=== PATIENT | female | born 1950 | race African-American/Black ===

== ENCOUNTER 2022-11-10 18:39 | Inpatient (IN) | payer MEDICARE, MEDICAID ==
[~2022-11-10] VITALS: Ht 157.5 cm; Wt 44.1 kg
[2022-11-10] MEDS ORDERED: ASPIRIN 81MG TABLET PO ONE (19:45)
[2022-11-10] MEDS ORDERED: NITROGLYCERIN 0.4MG TABLET SL SL PRN (19:45)
[2022-11-10 20:25] LABS: BASOPHILS % 0.9 % (0.0-2.0); EOSINOPHILS % 0.8 % (0.0-5.0); HEMATOCRIT. 36.5 % (36.0-48.0); HEMOGLOBIN. 11.9 g/dL (12.0-16.0); LYMPHOCYTES % 31.5 % (20.0-50.0); MEAN CORPUSCULAR HEMOGLOBIN 29.1 pg (28.0-32.0); MEAN CORPUSCULAR VOLUME 89.1 fL (81.0-99.0); MONOCYTES % 8.8 % (2.0-8.0); PLATELET 109 x1000/uL (130-400); RED CELL DISTRIBUTION WIDTH 16.1 % (11.6-14.6)
[2022-11-10 20:32] LABS: CHLORIDE 110 mEq/L (98-107)
[2022-11-10 20:35] LABS: D-DIMER 1.92 mg/L FEU (<0.50); PARTIAL THROMBOPLASTIN TIME 26.5 sec (23.4-31.0); PROTHROMBIN TIME 10.7 sec (9.6-11.0)
[2022-11-10] MEDS ORDERED: POTASSIUM CHLORIDE 20MEQ TABLET SR PO ONE (21:45)
[2022-11-10] MEDS ORDERED: ENOXAPARIN 80MG/0.8ML SYR SUBCUT ONE (21:45)
[2022-11-10] MEDS ORDERED: ASPIRIN 81MG TABLET PO NR (22:30)
[2022-11-11] VITALS (7 sets, daily range): BP systolic 108–141; BP diastolic 55–78; PULSE 65–79; RESP 16–18; TEMP 97.7–98.2
[2022-11-11] MEDS ORDERED: GUAIFENESIN 200MG/10ML SUGAR FREE UDC PO PRN (00:15)
[2022-11-11] MEDS ORDERED: IPRATROPIUM/ALBUTEROL 0.5-3(2.5)MG/3ML NEB NEB PRN (00:15)
[2022-11-11] MEDS ORDERED: LORAZEPAM 2MG/ML CPJ IV PRN (00:15)
[2022-11-11] MEDS ORDERED: DOCUSATE SODIUM 100MG CAPSULE PO PRN (00:15)
[2022-11-11] MEDS ORDERED: ACETAMINOPHEN 325MG TABLET PO PRN (00:15)
[2022-11-11] MEDS ORDERED: MAGNESIUM/ALUMINUM HYDROXIDE/SIMETHICONE 30ML UDC PO PRN (00:15)
[2022-11-11] MEDS ORDERED: DEXTROSE 50% WATER 50ML SYRINGE IV PRN (00:15)
[2022-11-11] MEDS ORDERED: ONDANSETRON HCL 4MG/2ML INJ IV PRN (00:15)
[2022-11-11] MEDS ORDERED: CLONIDINE 0.1MG TABLET PO PRN (00:15)
[2022-11-11] MEDS ORDERED: FURO40TA5 PO (02:13)
[2022-11-11] MEDS ORDERED: SACU1TAB PO (02:13)
[2022-11-11] MEDS ORDERED: ALBU18HF2 IH (02:13)
[2022-11-11] MEDS ORDERED: HYDR25TA PO (02:13)
[2022-11-11] MEDS ORDERED: VILA40TA2 PO (02:13)
[2022-11-11] MEDS ORDERED: PRED5TAB PO (02:13)
[2022-11-11] MEDS ORDERED: CARV3.1242 PO (02:13)
[2022-11-11] MEDS ORDERED: ALBU4TAB14 PO (02:13)
[2022-11-11] MEDS ORDERED: NABU-137 PO (02:13)
[2022-11-11] MEDS ORDERED: BUDE6HFA IH ×2 (02:13→02:18)
[2022-11-11] MEDS ORDERED: BUPR-46 PO (02:13)
[2022-11-11] MEDS ORDERED: ALBU4TAB6 PO (02:13)
[2022-11-11] MEDS ORDERED: GABA-290 PO (02:13)
[2022-11-11] MEDS ORDERED: SERT-422 PO (02:13)
[2022-11-11] MEDS ORDERED: PROC5TAB55 PO (02:13)
[2022-11-11] MEDS ORDERED: DAPA10TA PO (02:13)
[2022-11-11] MEDS ORDERED: DEXL60CA6 PO (02:13)
[2022-11-11] MEDS: CARVEDILOL 3.125 MG TABLET PO SCH ×3 (02:33→17:37)
[2022-11-11] MEDS: ACETAMINOPHEN 325MG TABLET PO PRN (02:57)
[2022-11-11 03:12] LABS: PHOSPHORUS 3.1 mg/dL (2.5-4.9)
[2022-11-11 03:18] LABS: INR 1.1; PROTHROMBIN TIME 11.3 sec (9.6-11.0)
[2022-11-11] MEDS ORDERED: POTASSIUM CHLORIDE 20MEQ TABLET SR PO NR (05:15)
[2022-11-11 05:29] LABS: FERRITIN 45 ng/mL (10-291)
[2022-11-11 05:41] LABS: VITAMIN B12 SERUM 306 pg/mL (211-911)
[2022-11-11] MEDS: GABAPENTIN 300MG CAPSULE PO SCH ×3 (06:35→21:11)
[2022-11-11] MEDS: BLOOD SUGAR DIAGNOSTIC STRIP TEST SCH ×4 (07:56→21:00)
[2022-11-11] MEDS: INSULIN LISPRO 100 UNITS/ML SUBCUT SCH ×4 (07:57→21:00)
[2022-11-11] MEDS: PREDNISONE 5MG TABLET PO SCH ×2 (09:00→09:10)
[2022-11-11] MEDS: HYDROCHLOROTHIAZIDE 25MG TABLET PO SCH ×2 (09:00→09:10)
[2022-11-11] MEDS: PANTOPRAZOLE SODIUM 40 MG/VIAL IV SCH (09:09)
[2022-11-11] MEDS: FUROSEMIDE 40MG/4ML VIAL IVP SCH (09:10)
[2022-11-11] MEDS: ENOXAPARIN 40MG/0.4ML SYR SUBCUT SCH (09:11)
[2022-11-11 09:16] LABS: CREATINE KINASE MB FRACTION 1.8 ng/mL (0.5-3.6)
[2022-11-11] MEDS: IPRATROPIUM/ALBUTEROL 0.5-3(2.5)MG/3ML NEB NEB SCH ×4 (09:37→21:06)
[2022-11-11] MEDS: BUPROPION HCL 75MG TABLET PO SCH ×2 (10:09→21:28)
[2022-11-11] MEDS ORDERED: IOHEXOL-350 100 ML BOTTLE ONE (15:24)
[2022-11-11 18:47] LABS: CREATINE KINASE MB FRACTION 1.6 ng/mL (0.5-3.6)
[2022-11-12] VITALS (11 sets, daily range): BP systolic 97–143; BP diastolic 47–76; PULSE 61–83; RESP 16–20; TEMP 97.2–99; O2SAT 92–99
[2022-11-12] MEDS: IPRATROPIUM/ALBUTEROL 0.5-3(2.5)MG/3ML NEB NEB SCH ×6 (00:10→21:13)
[2022-11-12] MEDS: GABAPENTIN 300MG CAPSULE PO SCH ×3 (05:22→21:08)
[2022-11-12] MEDS: BLOOD SUGAR DIAGNOSTIC STRIP TEST SCH ×4 (07:40→20:37)
[2022-11-12 07:55] LABS: CHLORIDE 106 mEq/L (98-107)
[2022-11-12 07:59] LABS: BASOPHILS % 0.7 % (0.0-2.0); EOSINOPHILS % 2.4 % (0.0-5.0); HEMATOCRIT. 33.9 % (36.0-48.0); HEMOGLOBIN. 11.4 g/dL (12.0-16.0); LYMPHOCYTES % 39.3 % (20.0-50.0); MEAN CORPUSCULAR HEMOGLOBIN 29.5 pg (28.0-32.0); MEAN PLATELET VOLUME 10.4 fl (7.4-10.4); MONOCYTES % 11.2 % (2.0-8.0); NEUTROPHILS % 46.4 % (40.0-76.0); PLATELET 107 x1000/uL (130-400); RED BLOOD CELL COUNT 3.86 mill/uL (4.2-5.4); RED CELL DISTRIBUTION WIDTH 15.7 % (11.6-14.6)
[2022-11-12] MEDS: INSULIN LISPRO 100 UNITS/ML SUBCUT SCH ×4 (08:10→20:37)
[2022-11-12 08:11] LABS: HDL CHOLESTEROL 89 mg/dL (40-59); LDL CHOLESTEROL 63 mg/dL (5-100); T4 FREE 0.99 ng/dL (0.76-1.46)
[2022-11-12] MEDS: PREDNISONE 5MG TABLET PO SCH (08:50)
[2022-11-12] MEDS: BUPROPION HCL 75MG TABLET PO SCH ×2 (08:50→21:07)
[2022-11-12] MEDS: ENOXAPARIN 40MG/0.4ML SYR SUBCUT SCH (08:50)
[2022-11-12] MEDS: FUROSEMIDE 40MG/4ML VIAL IVP SCH (08:50)
[2022-11-12] MEDS: PANTOPRAZOLE SODIUM 40 MG/VIAL IV SCH (08:50)
[2022-11-12] MEDS: HYDROCHLOROTHIAZIDE 25MG TABLET PO SCH (08:51)
[2022-11-12] MEDS: CARVEDILOL 3.125 MG TABLET PO SCH ×2 (08:51→16:35)
[2022-11-12 09:38] LABS: BG BASE EXCESS 0.4 mmol/L (-2.0-2.0); BG DEOXYHEMOGLOBIN 3.9 % (0.0-5.0); BG FRACTION INSPIRED OXYGEN 21; BG HCO3 ACT 24.6 mmol/L (22.0-26.0); BG METHEMOGLOBIN 0.3 % (0.0-1.5); BG OXYHEMOGLOBIN 94.8 % (94.0-97.0); BG PCO2 38.1 mmHg (35.0-45.0); BG PH 7.428 (7.350-7.450); BG SAMPLE SITE LEFT BRACHIAL; BG TOTAL HEMOGLOBIN 12.7 g/dL (12.0-18.0); BG VENT MODE ROOM AIR
[2022-11-12] MEDS: SACUBITRIL/VALSARTAN 24MG/26MG TABLET PO SCH (13:01)
[2022-11-13] VITALS (12 sets, daily range): BP systolic 98–115; BP diastolic 53–65; PULSE 69–94; RESP 18–20; TEMP 97.8–99; O2SAT 99–100
[2022-11-13] MEDS: IPRATROPIUM/ALBUTEROL 0.5-3(2.5)MG/3ML NEB NEB SCH ×6 (00:22→20:36)
[2022-11-13] MEDS: GABAPENTIN 300MG CAPSULE PO SCH ×3 (05:35→21:07)
[2022-11-13 07:38] LABS: BASOPHILS % 0.5 % (0.0-2.0); EOSINOPHILS % 1.3 % (0.0-5.0); HEMATOCRIT. 34.1 % (36.0-48.0); HEMOGLOBIN. 11.6 g/dL (12.0-16.0); MEAN PLATELET VOLUME 10.1 fl (7.4-10.4); MONOCYTES % 11.4 % (2.0-8.0); NEUTROPHILS % 57.8 % (40.0-76.0); PLATELET 118 x1000/uL (130-400); RED BLOOD CELL COUNT 3.87 mill/uL (4.2-5.4); RED CELL DISTRIBUTION WIDTH 15.8 % (11.6-14.6)
[2022-11-13] MEDS: BLOOD SUGAR DIAGNOSTIC STRIP TEST SCH ×4 (07:40→20:26)
[2022-11-13 08:09] LABS: CHLORIDE 105 mEq/L (98-107)
[2022-11-13] MEDS: INSULIN LISPRO 100 UNITS/ML SUBCUT SCH ×4 (08:10→20:26)
[2022-11-13] MEDS: CARVEDILOL 3.125 MG TABLET PO SCH ×2 (09:00→17:00)
[2022-11-13 09:23] LABS: CLARITY URINE CLEAR (CLEAR); COLOR URINE YELLOW (YELLOW); KETONES URINE NEGATIVE (NEGATIVE); LEUKOCYTE ESTERASE URINE NEGATIVE (NEGATIVE); NITRITE URINE NEGATIVE (NEGATIVE); OCCULT BLOOD URINE NEGATIVE (NEGATIVE); PROTEIN URINE NEGATIVE (NEGATIVE); UROBILINOGEN URINE 0.2 E.U./dL (0.2-1.0)
[2022-11-13 09:44] LABS: *AMPHETAMINES SCREEN URINE NEGATIVE (NEGATIVE); *BARBITURATES SCREEN URINE NEGATIVE (NEGATIVE); *BENZODIAZEPINES SCREEN URINE NEGATIVE (NEGATIVE); *COCAINE SCREEN URINE NEGATIVE (NEGATIVE); CANNABINOID URINE SCREEN NEGATIVE (NEGATIVE); METHADONE URINE SCREEN NEGATIVE (NEGATIVE); OPIATES URINE SCREEN NEGATIVE (NEGATIVE); PHENCYCLIDINE URINE SCREEN NEGATIVE (NEGATIVE)
[2022-11-13] MEDS: BUPROPION HCL 75MG TABLET PO SCH ×2 (09:50→21:07)
[2022-11-13] MEDS: SACUBITRIL/VALSARTAN 24MG/26MG TABLET PO SCH (09:50)
[2022-11-13] MEDS: HYDROCHLOROTHIAZIDE 25MG TABLET PO SCH (09:50)
[2022-11-13] MEDS: PANTOPRAZOLE 40MG DR TABLET PO SCH (09:52)
[2022-11-13] MEDS: FUROSEMIDE 40MG/4ML VIAL IVP SCH (09:52)
[2022-11-13] MEDS: ENOXAPARIN 40MG/0.4ML SYR SUBCUT SCH (09:53)
[2022-11-13] MEDS: ACETAMINOPHEN 325MG TABLET PO PRN (17:27)
[2022-11-13] MEDS: MECLIZINE 25MG TABLET PO PRN (22:10)
[2022-11-14] VITALS (9 sets, daily range): BP systolic 98–119; BP diastolic 55–62; PULSE 72–98; RESP 12–23; TEMP 97.8–98.5; O2SAT 98
[2022-11-14] MEDS: IPRATROPIUM/ALBUTEROL 0.5-3(2.5)MG/3ML NEB NEB SCH ×5 (00:11→20:52)
[2022-11-14] MEDS: GABAPENTIN 300MG CAPSULE PO SCH ×2 (05:38→21:31)
[2022-11-14] MEDS: BLOOD SUGAR DIAGNOSTIC STRIP TEST SCH ×2 (07:40→21:28)
[2022-11-14] MEDS: INSULIN LISPRO 100 UNITS/ML SUBCUT SCH ×2 (07:58→21:00)
[2022-11-14] MEDS ORDERED: ENOXAPARIN 30MG/0.3ML SYR SUBCUT SCH (09:00)
[2022-11-14] MEDS: FUROSEMIDE 40MG/4ML VIAL IVP SCH (09:00)
[2022-11-14] MEDS: BUPROPION HCL 75MG TABLET PO SCH ×3 (09:00→21:31)
[2022-11-14] MEDS: HYDROCHLOROTHIAZIDE 25MG TABLET PO SCH (09:00)
[2022-11-14] MEDS: CARVEDILOL 3.125 MG TABLET PO SCH ×2 (09:00→21:31)
[2022-11-14] MEDS: SACUBITRIL/VALSARTAN 24MG/26MG TABLET PO SCH (09:00)
[2022-11-14] MEDS: PANTOPRAZOLE 40MG DR TABLET PO SCH (10:49)
[2022-11-14] MEDS ORDERED: HEPARIN 1000 UNITS/ML 10ML ONE (14:12)
[2022-11-14] MEDS ORDERED: PROPOFOL 200MG/20ML VIAL IV ONE (14:14)
[2022-11-14] MEDS ORDERED: FENTANYL CITRATE/PF 50MCG/ML 2ML VIAL ONE (14:15)
[2022-11-14] MEDS ORDERED: MIDAZOLAM HCL 2 MG/2 ML VIAL ONE (14:15)
[2022-11-14] MEDS ORDERED: LABETALOL 5MG/ML SYR 20 MG/4 ML SYRINGE IV PRN (15:00)
[2022-11-14] MEDS ORDERED: ONDANSETRON HCL 4MG/2ML INJ IV PRN (15:00)
[2022-11-14] MEDS ORDERED: HYDROMORPHONE HCL/PF 2MG/ML CPJ IV PRN (15:00)
[2022-11-14] MEDS ORDERED: MEPERIDINE HCL/PF 25MG/ML CPJ IV PRN (15:00)
[2022-11-14] MEDS ORDERED: LIDOCAINE HCL 1% 20ML VIAL (Pyxis) INJ ONE (15:02)
[2022-11-14] MEDS ORDERED: LIDOCAINE HCL 1% 10 MG/ML 10ML VIAL ONE (15:02)
[2022-11-14] MEDS ORDERED: ONDANSETRON HCL 4MG/2ML INJ ONE ×2 (15:41→17:31)
[2022-11-14] MEDS ORDERED: DOBUTAMINE 250MG PREMIX 250 ML IV ONE (16:45)
[2022-11-14] MEDS ORDERED: ETOMIDATE 2MG/ML 10ML VIAL IV ONE (17:31)
[2022-11-14] MEDS ORDERED: ROCURONIUM BROMIDE 10MG/ML VIAL 5ML IV ONE (17:31)
[2022-11-14] MEDS ORDERED: EPHEDRINE SULFATE 50MG/ML VIAL ONE (17:31)
[2022-11-14] MEDS ORDERED: DEXAMETHASONE 4MG/ML 1ML VIAL ONE (17:31)
[2022-11-14] MEDS ORDERED: NEOSTIGMINE METHYLSULFATE 1MG/ML 10 ML VIAL ONE (18:41)
[2022-11-14] MEDS ORDERED: GLYCOPYRROLATE 0.2 MG/ML 2ML VIAL ONE ×2 (18:41)
[2022-11-14 20:15] LABS: HEMATOCRIT 36.4 % (36.0-48.0); HEMOGLOBIN 11.7 g/dL (12.0-16.0); MEAN CORPUSCULAR HEMOGLOBIN 28.6 pg (28.0-32.0); MEAN CORPUSCULAR VOLUME 89.2 fL (81.0-99.0); PLATELET 104 x1000/uL (130-400); RED BLOOD CELL COUNT 4.08 mill/uL (4.2-5.4); RED CELL DISTRIBUTION WIDTH 16.1 % (11.6-14.6)
[2022-11-14 20:24] LABS: PROTHROMBIN TIME 10.9 sec (9.6-11.0)
[2022-11-14 20:44] LABS: CHLORIDE 107 mEq/L (98-107)
[2022-11-15] VITALS (10 sets, daily range): BP systolic 108–126; BP diastolic 52–79; PULSE 70–82; RESP 16–21; TEMP 97.5–98.6; O2SAT 98–99
[2022-11-15] MEDS: IPRATROPIUM/ALBUTEROL 0.5-3(2.5)MG/3ML NEB NEB SCH ×5 (00:13→20:32)
[2022-11-15] MEDS: ACETAMINOPHEN 325MG TABLET PO PRN (00:39)
[2022-11-15] MEDS: MECLIZINE 25MG TABLET PO PRN (00:39)
[2022-11-15] MEDS: INSULIN LISPRO 100 UNITS/ML SUBCUT SCH ×4 (06:54→21:00)
[2022-11-15] MEDS: GABAPENTIN 300MG CAPSULE PO SCH ×3 (06:54→21:49)
[2022-11-15] MEDS: BLOOD SUGAR DIAGNOSTIC STRIP TEST SCH ×4 (06:54→21:48)
[2022-11-15] MEDS: BUPROPION HCL 75MG TABLET PO SCH ×2 (09:08→21:49)
[2022-11-15] MEDS: PANTOPRAZOLE 40MG DR TABLET PO SCH (09:08)
[2022-11-15] MEDS: CARVEDILOL 3.125 MG TABLET PO SCH (09:09)
[2022-11-15] MEDS: FUROSEMIDE 40MG TABLET PO SCH (09:09)
[2022-11-15] MEDS: SACUBITRIL/VALSARTAN 24MG/26MG TABLET PO SCH (09:51)
[2022-11-16] VITALS (9 sets, daily range): BP systolic 94–132; BP diastolic 58–78; PULSE 74–105; RESP 14–25; TEMP 97.7–98.4; O2SAT 99
[2022-11-16] MEDS: IPRATROPIUM/ALBUTEROL 0.5-3(2.5)MG/3ML NEB NEB SCH
[2022-11-16] MEDS: BLOOD SUGAR DIAGNOSTIC STRIP TEST SCH ×2 (06:03→11:04)
[2022-11-16] MEDS: GABAPENTIN 300MG CAPSULE PO SCH ×2 (06:03→13:46)
[2022-11-16] MEDS: INSULIN LISPRO 100 UNITS/ML SUBCUT SCH ×2 (07:20→11:10)
[2022-11-16] MEDS: PANTOPRAZOLE 40MG DR TABLET PO SCH (07:56)
[2022-11-16] MEDS: FUROSEMIDE 40MG TABLET PO SCH (07:56)
[2022-11-16] MEDS: BUPROPION HCL 75MG TABLET PO SCH (07:56)
[2022-11-16] MEDS ORDERED: CARV3.1242 PO (12:18)
[2022-11-16] MEDS ORDERED: GABA-532 PO (12:18)
[2022-11-16] MEDS ORDERED: PANT40TA51 PO (12:18)
[2022-11-16] MEDS ORDERED: BUPR75TA8 PO (12:18)
[2022-11-16] MEDS ORDERED: FURO40TA5 PO (12:18)
== END 2022-11-16 16:43 | disposition home health service (06) | DRG 273 ==
LOC: ER 18:39 → 7WST 22:28 → 3WST 11-14 18:13
PROVIDERS: ADMIT Hospitalist; ATTEND Hospitalist
PROC: 4A0234Z Measurement of Cardiac Electrical Activity, Percutaneous Approach (ICD-10-PCS; principal; 2022-11-14)
PROC: 02583ZZ Destruction of Conduction Mechanism, Percutaneous Approach (ICD-10-PCS; 2022-11-14)
PROC: 02K83ZZ Map Conduction Mechanism, Percutaneous Approach (ICD-10-PCS; 2022-11-14)
DX: I47.1 Supraventricular tachycardia (principal); I50.23 Acute on chronic systolic (congestive) heart failure; J44.1 Chronic obstructive pulmonary disease with (acute) exacerbation; I42.0 Dilated cardiomyopathy; R17 Unspecified jaundice; I11.0 Hypertensive heart disease with heart failure; D64.9 Anemia, unspecified; N28.9 Disorder of kidney and ureter, unspecified; E87.6 Hypokalemia; I48.0 Paroxysmal atrial fibrillation; R73.03 Prediabetes; F32.A Depression, unspecified; Z95.810 Presence of automatic (implantable) cardiac defibrillator; Z85.72 Personal history of non-Hodgkin lymphomas; Z79.51 Long term (current) use of inhaled steroids; Z79.899 Other long term (current) drug therapy; Z87.891 Personal history of nicotine dependence
CPT/HCPCS: 36415; 36600; 71045; 71275; 80053; 80061; 80305; 81003; 82375; 82550; 82553; 82607; 82728; 82746; 82805; 82962; 83036; 83540; 83550; 83605; 83735; 83880; 84100; 84145; 84439; 84443; 84481; 84484; 85025; 85027; 85379; 92610; 93005; 93306; 93880; 93970; 94640; 97162; 99285; C9113; J1100; J1250; J1644; J1650; J1815; J1940; J2250; J2405; J2704; J2710; J3010; J3490; J7512; J8597; Q9967